=== PATIENT | female | born 1960 | race Caucasian/White ===

== ENCOUNTER 2017-08-15 11:21 | Emergency (ER) | payer OTHER, MEDICARE ==
[~2017-08-15] VITALS: Ht 154.9 cm; Wt 72.1 kg
--- NOTE | 2017-08-15 12:14 | ED MVC/FALL/TRAUMA COMPLAINT ---
History of Present Illness General Chief Complaint: General Adult Stated Complaint: JOINT PAIN RT BUTT CHEEK Source: patient Exam Limitations: no limitations Vital Signs & Intake/Output Vital Signs & Intake/Output Vital Signs Date Time Temp Pulse Resp B/P B/P Pulse O2 O2 Flow FiO2 Mean Ox Delivery Rate 08/15 1347 98.4 84 18 160/82 99 Room Air 08/15 1203 98.7 88 18 136/60 99 Room Air 08/15 1129 98.1 105 18 182/89 98 Room Air Allergies Coded Allergies: acetaminophen (From PERCOCET) (Intermediate, RASH 08/15/17) morphine (Intermediate, SWELLING 08/15/17) oxycodone (From PERCOCET) (Intermediate, RASH 08/15/17) Reconcile Medications Cyclobenzaprine HCl 10 MG TABLET 1 TAB PO TID PRN PAIN Hydrocodone/Acetaminophen ([place] 5-325 Tablet) 5 MG-325 MG TABLET 1-2 TAB PO Q4-6 PRN PRN SEVERE PAIN Triage Note: PT TO ER C/C RIGHT BUTTOCKS PAIN X 4 DAYS S/P SLIP AND FALL DOWN 4 STAIRS. STATES SHE TRIPPED DOWN A FEW STEPS, DENIES HEADSTRIKE. AMBULATORY WITH SLOW STEADY GAIT (STATES WALKED HERE 1.2 MILES) Triage Nurses Notes Reviewed? yes Onset: Abrupt Duration: day(s): (3), constant, continues in ED, getting worse Timing: recent history Severity: moderate, severe Severity Numbers: 9 Injuries/Fall Location: back, pelvis, lower extremity Method of Injury: fall Loss of Consciousness: no loss of consciousness No Modifying Factors: none LMP (ages 10-50): post menopausal, unknown : No Patient currently breastfeeds: No HPI: 57 Y/O female past medical history of COPD, fibromyalgia, hypertension, diabetes and her evaluation of his ago. There was no head strike or loss of consciousness. She was able to get up. She's been ambulating. She states that she walked a mile to get here. Patient reports pain located in her right lower back rating into her right but and right upper leg. Pain is worse with movement. No numbness or tingling. Patient does report a history of chronic back pain and sciatica on that side. This does feels like her similar pain. She's been taking ibuprofen at home without any improvement. She states she recently moved here from [place]. She reports that she's been to the hospital multiple times for sciatica and usually requires Dilaudid and 7.5 mg of Vicodin. (Den Johnson) Past History Travel History Traveled to [place] past 21 day No Medical History Any Pertinent Medical History? see below for history Cardiovascular: hypertension Respiratory: COPD Musculoskeletal: fibromyalgia Endocrine: diabetes Cancer(s): cervical cancer Surgical History Surgical History: non-contributory Psychosocial History What is your primary language Yoruba Tobacco Use: Current Daily Use Daily Tobacco Use Amount/Type: => 5 Cigarettes daily Family History Hx Contributory? No (Den Johnson) Review of Systems Review of Systems Constitutional: Reports: no symptoms. Eyes: Reports: no symptoms. Ears, Nose, Throat, Mouth: Reports: no symptoms. Respiratory: Reports: no symptoms. Cardiovascular: Reports: no symptoms. Gastrointestinal/Abdominal: Reports: no symptoms. Genitourinary: Reports: no symptoms. Musculoskeletal: Reports: see HPI, back pain, joint pain, muscle pain, muscle stiffness. Skin: Reports: no symptoms. Neurological/Psychological: Reports: no symptoms. All Other Systems: Reviewed and Negative (Den Johnson) Physical Exam Physical Exam General Appearance: well developed/nourished, no apparent distress, alert, awake Head: atraumatic, normal appearance Eyes: Bilateral: normal appearance, PERRL, EOMI. Ears, Nose, Throat, Mouth: hearing grossly normal, moist mucous membrane Neck: normal inspection, supple, full range of motion, no midline tenderness Respiratory: normal breath sounds, chest non-tender, no respiratory distress, lungs clear Cardiovascular: regular rate/rhythm, normal peripheral pulses Peripheral Pulses: 2+ radial (R), 2+ radial (L) Gastrointestinal: normal bowel sounds, soft, non-tender, no organomegaly Back: normal inspection, normal range of motion (with pain), there is pain to palpation in the right lumbar paraspinous muscles and right flank. No bruising swelling or abrasions there is also pain palpation in the right buttock. Straight leg raise is positive on the right. No midline tenderness no step-offs or deformities Extremities: straight leg raised (positive on the right), there is pain with range of motion of the right hip. No bruising swelling or abrasions deformities. Patient is able to walk and bear weight no other joint swelling or pain Neurologic/Psych: no motor/sensory deficits, awake, alert, oriented x 3, normal gait (slow with pain), normal mood/affect Skin: intact, normal color, warm/dry Core Measures ACS in differential dx? No CVA/TIA Diagnosis No Sepsis Present: No Sepsis Focused Exam Completed? No (Ian VANESSA,Den) Progress Differential Diagnosis: abd injury, C/T/L spine injury, ext injury, pelvis injury, spinal cord injury, fracture, contusion, sciatica, muscle strain, herniated disc, cauda equina Plan of Care: Orders Procedure Date/time Status CT ABD & PELVIS W/O IV CONTRAS 08/15 1155 Active Current Medications Sig/Hieu Start time Last Medication Dose Stop Time Status Admin Hydrocodone Bitart/ 1 TAB ONCE ONE 08/15 1200 UNVr 08/15 Acetaminophen 08/15 1201 1158 (Vicodin) Patient seen and evaluated. She has a history of right-sided sciatica and chronic back pain. She fell down stairs landing on her butt a few days ago. She is able to walk a mile here. The pain is located in her right lower back rate and her right butt right upper leg. Straight leg raise positive on the right. No bruising swelling or abrasions. Patient was medicated with Vicodin. A CT scan of the abdomen and pelvis was ordered She is still reporting pain despite Vicodin. A second dose of Vicodin and cyclobenzaprine was ordered. CT scan is negative for any signs of acute trauma. Patient is feeling better after second round of medications. She is able to walk and bear weight. She'll be discharged home with a prescription of her cycle Benzedrine Vicodin. Advised rest ice avoid excessive physical activity. She was given a list of primary care doctors follow-up with. Discussed return precautions patient agrees the plan. Diagnostic Imaging: Viewed by Me: CT Scan. Discussed w/RAD: CT Scan. Radiology Impression: PATIENT: KIARA BOWIE PRESENT AGE: 57 PATIENT ACCOUNT NO: [id number] : 61 LOCATION: [facility] ORDERING PHYSICIAN: Den VANESSA SERVICE DATE: 08/15/17-1155 EXAM TYPE: CAT - CT ABD & PELVIS W/O IV CONTRAS EXAMINATION: CT ABDOMEN AND PELVIS WITHOUT CONTRAST CLINICAL INFORMATION: Right-sided back and pelvic pain after fall COMPARISON: None TECHNIQUE: Multidetector volumetric imaging was performed from the superior aspect of the liver through the pubic symphysis. Sagittal and coronal reformatted images were obtained on the technologist's workstation. DLP: 566 mGy-cm FINDINGS: LUNG BASES: Atherosclerotic calcification of coronary arteries and of the visualized thoracic aorta. Mitral valve annulus is calcified. The visualized lung bases have mosaic attenuation. Bronchial garibay are thickened within the visualized lung bases; query whether there is a history of chronic cigarette smoking. No pericardial or pleural effusion. LIVER, GALLBLADDER, AND BILIARY TREE: Unremarkable. PANCREAS: Unremarkable. SPLEEN: Unremarkable. ADRENAL GLANDS: Unremarkable. KIDNEYS AND URETERS: Unremarkable. No evidence of urolithiasis or urinary tract obstruction. BLADDER: Unremarkable. GASTROINTESTINAL TRACT: Bowel loops are normal in caliber. Appendix is normal. Diverticulosis of sigmoid colon without diverticulitis. No ascites or pneumoperitoneum. ABDOMINAL WALL: Unremarkable. LYMPH NODES: Normal. VASCULAR: There is extensive atherosclerotic calcification of the abdominal aorta and branch vessels without aneurysm. No retroperitoneal hematoma. PELVIC VISCERA: Status post hysterectomy. No pelvic mass or free fluid. OSSEOUS STRUCTURES: The visualized lower thoracic and lumbar vertebra have normal height and alignment. The anterior and posterior elements are intact. No acute fracture or traumatic subluxation. Pelvic bones and proximal femurs are intact. The visualized ribs of the lower chest are normal. IMPRESSION: - No acute findings in the visualized lower chest, abdomen or pelvis. - Diverticulosis of the sigmoid colon without diverticulitis. - No evidence of pelvic bone injury or femoral fracture. DICTATED BY: Caio Lopez MD DATE/TIME DICTATED:08/15/171300 PROFESSIONAL FEE CODER:NATALIE DATE/TIME TRANSCRIBED:08/15/171300 CONFIDENTIAL, DO NOT COPY WITHOUT APPROPRIATE AUTHORIZATION. (Ian VANESSA,Den) Departure Departure Disposition: HOME OR SELF CARE Condition: Stable Clinical Impression Primary Impression: Low back pain Qualifiers: Chronicity: acute Back pain laterality: right Sciatica presence: with sciatica Sciatica laterality: sciatica of right side Qualified Code: M54.41 - Lumbago with sciatica, right side Referrals: Felicia PADILLA,Troy El MD,Lev Pearson MD,Michi Sue Patient Has No Primary Care Dr (PCP/Family) Additional Instructions: Rest, avoid heavy lifting bending or excessive physical activity. Tylenol ibuprofen for pain. Cyclobenzaprine is a muscle relaxer that can be used every 8 hours as needed this may cause drowsiness. [place] for severe pain only this may cause drowsiness especially combined with cyclobenzaprine. Make a follow-up with provided primary care doctor for a recheck within the next week. Monitor symptoms closely return with any concerns. Please go over all results of today's visit with your primary care doctor. Contact your primary care doctor to let them know you were here in the emergency room. There may be nonspecific findings which may not be related to your visit today here in the emergency room but may require further evaluation and chronic monitoring by your primary care doctor. If you had a laceration today the chance of foreign body always remains. You should follow-up with your primary care doctor for recheck in 3-5 days for a wound check. If you had an x-ray done there is a chance that a fracture could have been missed on initial read and you should follow-up with your primary care doctor for repeat x-rays if symptoms persist. If your blood pressure was elevated here in the emergency room please have rechecked by her primary care doctor within the next 48 hours by your primary care doctor. If you were prescribed a narcotic here in the emergency room or any type of controlled substances you're not allowed to drive while taking this medication or operate any type of heavy machinery. Narcotics can make you feel lightheaded dizziness nausea and can cause constipation. You may need to pickers material handlers a stool softener. Thank you for choosing [facility] emergency room. Please return to the emergency room immediately if you have any other concerns worsening of symptoms. Departure Forms: Customer Survey General Discharge Information Prescriptions: Current Visit Scripts Cyclobenzaprine HCl 1 TAB PO TID PRN PAIN #30 TAB Hydrocodone/Acetaminophen ([place] 5-325 Tablet) 1-2 TAB PO Q4-6 PRN PRN SEVERE PAIN #10 TAB (Den Johnson) PA/RESPITE CARE PROVIDER Co-Sign Statement Statement: ED Attending supervision documentation- I saw and evaluated the patient. I have also reviewed all the pertinent lab results and diagnostic results. I agree with the findings and the plan of care as documented in the PA's/RESPITE CARE PROVIDER's documentation. x I have reviewed the ED Record and agree with the PA's/RESPITE CARE PROVIDER's documentation. [] Additions or exceptions (if any) to the PAs/RESPITE CARE PROVIDER's note and plan are summarized below: [] (Oscar PADILLA,Nuno)
--- NOTE | 2017-08-15 13:12 | CT SCAN REPORT ---
EXAMINATION: CT ABDOMEN AND PELVIS WITHOUT CONTRAST CLINICAL INFORMATION: Right-sided back and pelvic pain after fall COMPARISON: None TECHNIQUE: Multidetector volumetric imaging was performed from the superior aspect of the liver through the pubic symphysis. Sagittal and coronal reformatted images were obtained on the technologist's workstation. DLP: 566 mGy-cm FINDINGS: LUNG BASES: Atherosclerotic calcification of coronary arteries and of the visualized thoracic aorta. Mitral valve annulus is calcified. The visualized lung bases have mosaic attenuation. Bronchial garibay are thickened within the visualized lung bases; query whether there is a history of chronic cigarette smoking. No pericardial or pleural effusion. LIVER, GALLBLADDER, AND BILIARY TREE: Unremarkable. PANCREAS: Unremarkable. SPLEEN: Unremarkable. ADRENAL GLANDS: Unremarkable. KIDNEYS AND URETERS: Unremarkable. No evidence of urolithiasis or urinary tract obstruction. BLADDER: Unremarkable. GASTROINTESTINAL TRACT: Bowel loops are normal in caliber. Appendix is normal. Diverticulosis of sigmoid colon without diverticulitis. No ascites or pneumoperitoneum. ABDOMINAL WALL: Unremarkable. LYMPH NODES: Normal. VASCULAR: There is extensive atherosclerotic calcification of the abdominal aorta and branch vessels without aneurysm. No retroperitoneal hematoma. PELVIC VISCERA: Status post hysterectomy. No pelvic mass or free fluid. OSSEOUS STRUCTURES: The visualized lower thoracic and lumbar vertebra have normal height and alignment. The anterior and posterior elements are intact. No acute fracture or traumatic subluxation. Pelvic bones and proximal femurs are intact. The visualized ribs of the lower chest are normal. IMPRESSION: - No acute findings in the visualized lower chest, abdomen or pelvis. - Diverticulosis of the sigmoid colon without diverticulitis. - No evidence of pelvic bone injury or femoral fracture.
[2017-08-15] MEDS ORDERED: CYCLOBENZAPRINE10 M1 PO (13:25)
[2017-08-15] MEDS ORDERED: NORCO 5-325 TA1 EACH PO (13:28)
== END 2017-08-15 13:58 ==
LOC: ERH 11:21
DX: M54.5 Low back pain (principal)
CPT/HCPCS: 74176

== ENCOUNTER 2018-01-11 11:47 | Emergency (ER) | payer OTHER ==
[~2018-01-11] VITALS: Ht 154.9 cm; Wt 82.1 kg
[~2018-01-11 11:47] MED LIST: AUGMENTIN 875-1 EACH PO; CYCLOBENZAPRINE10 M1 PO; MEDROL4 M2 PO; NORCO 5-325 TA1 EACH PO; PROAIR HFA8.5 GM INH
[2018-01-11 12:43] LABS: ABSOLUTE BASOPHIL COUNT 0 /CUMM (0.0-0.2); ABSOLUTE EOSINOPHIL COUNT 0.1 /CUMM (0.0-0.7); ABSOLUTE LYMPH COUNT 1.7 /CUMM (1.2-3.4); BASOPHIL % 0.3 % (0.0-2.0)
--- NOTE | 2018-01-11 12:50 | RADIOLOGY REPORT ---
EXAMINATION: XR CHEST CLINICAL INFORMATION: Cough, fever, shortness of breath. Presumptive diagnosis of pneumonia, CHF. COMPARISON: Chest x-ray dated 01/06/2018. Report from prior chest x-ray dated 01/23/2005. TECHNIQUE: 2 views of the chest were obtained. FINDINGS: The cardiomediastinal silhouette is within normal limits in size. Mild thickening of the central airways is seen and there is some linear reticular opacities seen in the lung bases bilaterally. No focal consolidation, pulmonary edema, effusion or pneumothorax is seen. The left CP angle is not fully included on this exam. Moderate vertebral spondylosis is seen in the mid and lower thoracic spine. IMPRESSION: 1. Findings are most consistent with reactive airways disease or bronchitis with associated bibasilar atelectatic changes. No definite dense consolidation is seen to suspect a pneumonia. 2. No evidence of pulmonary edema.
[2018-01-11 12:52] LABS: ABSOLUTE GRANULOCYTE CT 10.7 /CUMM (1.4-6.5); ABSOLUTE MONOCYTE COUNT 0.6 /CUMM (0.10-0.60); EOSINOPHIL % 0.9 % (0-5); GRANULOCYTE % 81.5 % (42.2-75.2); HEMATOCRIT 34.5 % (37-47); MEAN CORPUSCULAR HGB 28.7 PG (27.0-31.0); MEAN CORPUSCULAR HGB CONC 33.8 G/DL (33.0-37.0); MEAN CORPUSCULAR VOLUME 84.9 FL (81.0-99.0); MEAN PLATELET VOLUME 9.9 FL (7.4-10.4); PLATELET COUNT 262 /CUMM (130-400); RBC DISTRIBUTION WIDTH 13.3 % (11.5-14.5); RED BLOOD CELL CT 4.06 /CUMM (4.20-5.40)
[2018-01-11 12:53] LABS: WHITE BLOOD CELL COUNT 13.1 /CUMM (4.8-10.8)
--- NOTE | 2018-01-11 14:53 | ED DYSPNEA/ASTHMA COMPLAINT ---
History of Present Illness General Chief Complaint: Dyspnea (COPD, CHF, Other) Stated Complaint: BIBA COPD, DIAGNOSED W/ BRONCHITIS, SOB Source: patient, family Exam Limitations: no limitations Vital Signs & Intake/Output Vital Signs & Intake/Output Vital Signs Date Time Temp Pulse Resp B/P B/P Pulse O2 O2 Flow FiO2 Mean Ox Delivery Rate 01/11 1434 97 01/11 1150 96.5 96 18 146/77 94 Room Air Allergies Coded Allergies: acetaminophen (From PERCOCET) (Intermediate, RASH 08/15/17) hydroxyzine (Intermediate, RASH 12/24/17) morphine (Intermediate, SWELLING 08/15/17) oxycodone (From PERCOCET) (Intermediate, RASH 08/15/17) Reconcile Medications Albuterol Sulfate (Proair Hfa) 90 MCG HFA.AER.AD 2 PUF INH Q4-6 PRN PRN wheezing and cough Amoxicillin/Potassium Clav (Augmentin 875-125 Tablet) 875 MG-125 MG TABLET 1 TAB PO BID bronchitis Azithromycin 250 MG TABLET 1 DP PO AD BRONCHITIS 2 the first day followed by 1 for days 2-5 Codeine Phosphate/Guaifenesi (Cheratussin AC Syrup) 10 MG-100 MG/5 ML LIQUID 10 ML PO Q6H PRN COUGH Cyclobenzaprine HCl 10 MG TABLET 1 TAB PO TID PRN PAIN Hydrocodone/Acetaminophen ([place] 5-325 Tablet) 5 MG-325 MG TABLET 1-2 TAB PO Q4-6 PRN PRN SEVERE PAIN Methylprednisolone. (Medrol) 4 MG TAB.DS.PK 1 DP PO AD bronchitis 6 on day 1 then reduce by one tablet daily until gone Prednisone 10 MG TABLET 1 DOSE PO ONCE DAILY COPD 5 TABS X 3 DAYS 4 TABS X 3 DAYS 3 TABS X 3 DAYS 2 TABS X 3 DAYS 1 TAB X 3 DAYS Triage Note: 57 Y/O FEMALE C/O WORSENING URI SYMPTOMS, DIAGNOSED WITH BRONCHITIS APRPOX 4 DAYS AGO. PT STATES SHE FEELS IT IS TURNING INTO PNEUMONIA NOW. RECEIVED 125MG SOLU MEDROL AND 1 DUO NEB EN ROUTE (PRE HOSPITAL IV HEPLOCKED). PT STATES NO CHANGE IN SYMPTOMS. SPEAKING WITH LONG SENTENCES AND NO DISTRESS, SAT 94%. VOICE COARSE EVALD BY RASHEEDA RAY Triage Nurses Notes Reviewed? yes Onset: Abrupt Duration: week(s): (1), constant, continues in ED, getting worse Timing: single episode today Severity: mild, moderate Activities at Onset: none Prior Episodes/Possible Cause: frequent episodes LMP (ages 10-50): post menopausal, unknown : No Patient currently breastfeeds: No HPI: 57 y/o female history of hypertension, diabetes and COPD presents for evaluation of cough, congestion and wheezing. Patient reports she was diagnosed with acute bronchitis a few days ago and was started on Medrol Dosepak and Augmentin. She' s been taking these as directed and using her inhaler. She reports her cough has persisted and she feels that she is getting worse. She's had no fever or hemoptysis lower extreme edema or chest pain. She is a current every day smoker. She denies any dizziness or lightheadedness. No syncope. The cough is productive of yellow sputum. Past History Travel History Traveled to [place] past 21 day No Medical History Any Pertinent Medical History? see below for history Neurological: NONE EENT: NONE Cardiovascular: hypertension Respiratory: COPD Gastrointestinal: NONE Hepatic: NONE Renal: NONE Musculoskeletal: fibromyalgia Psychiatric: NONE Endocrine: diabetes Blood Disorders: NONE Cancer(s): cervical cancer Surgical History Surgical History: non-contributory Psychosocial History What is your primary language Thai Tobacco Use: Quit >30 days ago Family History Hx Contributory? No Review of Systems Review of Systems Constitutional: Reports: no symptoms. EENTM: Reports: no symptoms. Respiratory: Reports: see HPI, cough, short of breath, sputum production, wheezing. Cardiovascular: Reports: no symptoms. GI: Reports: no symptoms. Genitourinary: Reports: no symptoms. Musculoskeletal: Reports: no symptoms. Skin: Reports: no symptoms. Neurological/Psychological: Reports: no symptoms. Hematologic/Endocrine: Reports: no symptoms. Immunologic/Allergic: Reports: no symptoms. All Other Systems: Reviewed and Negative Physical Exam Physical Exam General Appearance: well developed/nourished, no apparent distress, alert, awake Head: atraumatic, normal appearance Eyes: Bilateral: normal appearance, PERRL, EOMI. Ears, Nose, Throat: normal pharynx, normal ENT inspection, hearing grossly normal Neck: normal inspection, supple, full range of motion Respiratory: chest non-tender, no respiratory distress, rhonchi, wheezing Cardiovascular: regular rate/rhythm, normal peripheral pulses Peripheral Pulses: 2+ radial (R), 2+ radial (L) Gastrointestinal: soft, non-tender Extremities: normal inspection, normal range of motion, no edema Neurologic/Psych: no motor/sensory deficits, awake, alert, oriented x 3, normal gait Skin: intact, normal color, warm/dry Core Measures ACS in differential dx? No CVA/TIA Diagnosis No Sepsis Present: No Sepsis Focused Exam Completed? No Progress Differential Diagnosis: asthma, bronchitis, CHF, COPD, pulmonary embolism, pneumonia, pneumothorax, unstable angina Plan of Care: Orders Procedure Date/time Status TROPONIN LEVEL 01/11 115 Complete COMPREHENSIVE METABOLIC PANEL 01/11 1154 Complete CBC WITHOUT DIFFERENTIAL 01/11 1154 Complete EKG 01/11 1154 Active Laboratory Tests 01/11/18 1232: Anion Gap 11, Estimated GFR 36 L, BUN/Creatinine Ratio 30.0 H, Glucose 248 H, Calcium 9.4, Total Bilirubin 0.5, AST 16, ALT 19, Alkaline Phosphatase 130 H, Troponin I < 0.01, Total Protein 7.3, Albumin 4.3, Globulin 3.0, Albumin/ Globulin Ratio 1.4, CBC w Diff NO MAN DIFF REQ, RBC 4.06 L, MCV 84.9, MCH 28.7, MCHC 33.8, RDW 13.3, MPV 9.9, Gran % 81.5 H, Lymphocytes % 12.9 L, Monocytes % 4.4, Eosinophils % 0.9, Basophils % 0.3, Absolute Granulocytes 10.7 H, Absolute Lymphocytes 1.7, Absolute Monocytes 0.6, Absolute Eosinophils 0.1, Absolute Basophils 0 01/11/18 1155: D-Dimer High Sensitivty Cancelled No evidence of pneumonia on chest x-ray. Patient does have a small white blood cell count but has been taking a Medrol Dosepak. Patient has diffuse wheezing but is not hypoxic here. She is not tachycardic. She has no chest pain dizziness lightheadedness or syncope. Her labs are otherwise unremarkable EKG is unchanged. Patient was given a dose of IV steroids by EMS she was given a DuoNeb here and is feeling better. She was ambulated in the emergency department she has a steady gait and did not desaturate. Patient is currently taking Augmentin. She was advised to continue this and she will also be placed on a Z-Maurisio. Patient will also be given a prednisone taper. I do not feel that she has failed outpatient therapy because she has only been on a Medrol Dosepak instead of high-dose prednisone. Advised her to quit smoking. Discussed return precautions in detail. Follow-up with the primary care doctor in a couple days for recheck return immediately with worsening cough shortness of breath hemoptysis chest pain fever or any other concerns. Diagnostic Imaging: Viewed by Me: Radiology Read. Discussed w/RAD: Radiology Read. Radiology Impression: PATIENT: KIARA BOWIE PRESENT AGE: 57 PATIENT ACCOUNT NO: [id number] : 62 LOCATION: [facility] ORDERING PHYSICIAN: Den VANESSA SERVICE DATE: 01/11/18 EXAM TYPE: RAD - XRY- CHEST XRAY, TWO VIEWS EXAMINATION: XR CHEST CLINICAL INFORMATION: Cough, fever, shortness of breath. Presumptive diagnosis of pneumonia, CHF. COMPARISON: Chest x-ray dated 01/06/2018. Report from prior chest x-ray dated 01/23/2005. TECHNIQUE: 2 views of the chest were obtained. FINDINGS: The cardiomediastinal silhouette is within normal limits in size. Mild thickening of the central airways is seen and there is some linear reticular opacities seen in the lung bases bilaterally. No focal consolidation, pulmonary edema, effusion or pneumothorax is seen. The left CP angle is not fully included on this exam. Moderate vertebral spondylosis is seen in the mid and lower thoracic spine. IMPRESSION: 1. Findings are most consistent with reactive airways disease or bronchitis with associated bibasilar atelectatic changes. No definite dense consolidation is seen to suspect a pneumonia. 2. No evidence of pulmonary edema. DICTATED BY: Jessica Sal MD DATE/TIME DICTATED:01/11/181243 FIRE ASSISTANT:NATALIE DATE/TIME TRANSCRIBED:01/11/181243 CONFIDENTIAL, DO NOT COPY WITHOUT APPROPRIATE AUTHORIZATION. Initial ED EKG: normal sinus rhythm, left atrial abn Departure Departure Disposition: HOME OR SELF CARE Condition: Stable Clinical Impression Primary Impression: COPD exacerbation Referrals: Samantha Singh MD (PCP/Family) Additional Instructions: Continue Augmentin as directed for the full course. Also start Zithromax for full course. Take prednisone as directed. Monitor your blood sugar as prednisone will increase it. Cheratussin as needed for cough continue to use your albuterol inhaler 2 puffs every 4-6 hours as needed. Tylenol ibuprofen as needed for pain. Quit smoking. Monitor your symptoms closely. If you have worsening shortness of breath cough fever chest pain or any other concerns return to medially. Departure Forms: Customer Survey General Discharge Information Prescriptions: Current Visit Scripts Azithromycin 1 DP PO AD #6 TAB 2 the first day followed by 1 for days 2-5 Prednisone 1 DOSE PO ONCE DAILY #1 DP 5 TABS X 3 DAYS 4 TABS X 3 DAYS 3 TABS X 3 DAYS 2 TABS X 3 DAYS 1 TAB X 3 DAYS Codeine Phosphate/Guaifenesi (Cheratussin AC Syrup) 10 ML PO Q6H PRN COUGH #240 ML Critical Care Note Critical Care Note Critical Care Time: non-applicable
[2018-01-11] MEDS ORDERED: PREDNISONE10 M2 PO (15:15)
[2018-01-11] MEDS ORDERED: AZITHROMYCIN250 M1 PO (15:15)
[2018-01-11] MEDS ORDERED: CHERATUSSIN AC118 M1 PO (15:15)
[2018-01-11 15:25] VITALS: BP 178/81
== END 2018-01-11 15:41 ==
LOC: ERH 11:47
PROVIDERS: Physician Assistant Medical
DX: J44.1 Chronic obstructive pulmonary disease with (acute) exacerbation (principal); F17.210 Nicotine dependence, cigarettes, uncomplicated; I10 Essential (primary) hypertension; E11.9 Type 2 diabetes mellitus without complications; M79.7 Fibromyalgia
CPT/HCPCS: 1263; 71046; 93005; 93010